=== PATIENT | female | born 1940 | race African-American/Black ===

== ENCOUNTER 2018-05-29 00:46 | Emergency (ER) | payer OTHER ==
[~2018-05-29] VITALS: Ht 172.7 cm; Wt 68.0 kg
[~2018-05-29 00:46] MED LIST: AMLO10TA80; CALC0.25; FURO20TA4; PRAV80TA21; TOPXL5
[2018-05-29 00:50] VITALS: BP 0/0
[2018-05-29] MEDS ORDERED: SUCCINYLCHOLINE CHLORIDE 200MG/10ML VIAL IV ONE (13:25)
[2018-05-29] MEDS ORDERED: EPINEPHRINE 0.1MG/ML (1:10,000) 10ML SYR ONE (14:09)
[2018-05-29] MEDS ORDERED: SODIUM BICARBONATE 7.5% 0.9 MEQ/ML 50ML SYR IV ONE (14:09)
== END 2018-05-29 00:55 | disposition expired ==
LOC: MERGE 00:47 → ER 00:47
DX: I46.9 Cardiac arrest, cause unspecified (principal); E11.9 Type 2 diabetes mellitus without complications; I10 Essential (primary) hypertension; Z89.512 Acquired absence of left leg below knee
CPT/HCPCS: 31500; 92950; 99285; J0330; J3490